=== PATIENT | male | born 1955 | race Two or more races ===

== ENCOUNTER 2018-12-25 18:31 | Emergency (ER) | payer MEDICARE ==
[~2018-12-25] VITALS: Ht 172.7 cm; Wt 77.1 kg
--- NOTE | 2018-12-25 18:45 | PHYS DOC ---
Adult General Chief Complaint Chief Complaint: COUGH HPI HPI Patient is a 63-year-old male who presents with complaint of productive cough for the last few days. Patient states that sputum has been yellow in color. He is not aware of any fever. Patient states that he just wanted to get checked out to make sure that he is not developing pneumonia. He states that he is starting to get sore in his lower ribs bilaterally from all the coughing. Patient is not aware of any aggravating or alleviating factors.[] Review of Systems Review of Systems Constitutional: Denies fever or chills [] Respiratory: Positive cough without shortness of breath [] Cardiovascular: No additional information not addressed in HPI [] GI: Denies abdominal pain, nausea, vomiting or diarrhea [] Integument: Denies rash or skin lesions [] Neurologic: Denies headache, focal weakness or sensory changes [] Current Medications Current Medications Current Medications Medications (Trade) Dose Ordered Sig/Michael Start Time Stop Time Status Last Admin Dose Admin Azithromycin (Zithromax) 500 mg 1X ONCE 12/25/18 19:15 12/25/18 19:16 DC 12/25/18 19:23 500 MG Allergies Allergies Allergies Coded Allergies Type Severity Reaction Last Updated Verified No Known Drug Allergies 12/25/18 No Physical Exam Physical Exam Constitutional: Well developed, well nourished, no acute distress, non-toxic appearance. [] Cardiovascular:Heart rate regular rhythm, no murmur [] Lungs & Thorax: Fine rhonchi noted in the right lung base to auscultation [] Abdomen: Bowel sounds normal, soft. [] Skin: Warm, dry, no erythema, no rash. [] Extremities: No tenderness, no cyanosis, no clubbing, ROM intact, no edema. [] Current Patient Data Vital Signs Vital Signs Date Time Temp Pulse Resp B/P (MAP) Pulse Ox O2 Delivery O2 Flow Rate FiO2 12/25/18 19:07 75 16 139/85 (103) 96 Room Air 12/25/18 18:45 98.4 98.4 EKG EKG [] Radiology/Procedures Radiology/Procedures [] Impressions: Chest x-ray demonstrates no acute process. Course & Med Decision Making Course & Med Decision Making Pertinent Labs and Imaging studies reviewed. (See chart for details) [] Dragon Disclaimer Dragon Disclaimer This electronic medical record was generated, in whole or in part, using a voice recognition dictation system. Departure Departure Impression: Primary Impression: Acute bronchitis Disposition: 01 HOME, SELF-CARE Condition: STABLE Patient Instructions: Acute Bronchitis Scripts Azithromycin (ZITHROMAX) 250 Mg Tablet 1 PKG PO UD, #6 TAB Prov: SIMA MCNEIL Jr. DO 12/25/18 Problem Qualifiers Primary Impression: Acute bronchitis Bronchitis organism: unspecified organism Qualified Codes: J20.9 - Acute bronchitis, unspecified SIMA MCNEIL Jr. DO Dec 25, 2018 18:45
[2018-12-25] MEDS ORDERED: AZIT250T PO (19:04)
[2018-12-25 19:07] VITALS: BP 139/85
[2018-12-25] MEDS ORDERED: AZITHROMYCIN 250 MG TABLET. PO ONE (19:15)
--- NOTE | 2018-12-25 22:19 | RAD ---
PA and lateral chest radiographs 12/25/2018 Clinical history: Cough. PA and lateral digital radiographs of the chest were obtained. Comparison is made to a CT scan of the chest dated 08/08/2003. The cardiac silhouette is normal in size. The thoracic aorta is mildly tortuous. No acute pulmonary infiltrate is seen. No pleural effusion or pneumothorax is noted. Degenerative changes are seen involving the thoracic spine. IMPRESSION: No acute abnormality is seen. Electronically signed by: Montana Cain MD (12/25/2018 10:16 PM) [facility]
== END 2018-12-25 19:24 | disposition home or self-care (01) ==
LOC: ER 18:31
DX: J20.9 Acute bronchitis, unspecified (principal)
CPT/HCPCS: 71046; 99284; Q0144

== ENCOUNTER 2021-04-25 16:56 | Emergency (ER) | payer MEDICARE ==
[~2021-04-25] VITALS: Ht 177.8 cm; Wt 85.0 kg
[~2021-04-25 16:56] MED LIST: AZIT250T PO
--- NOTE | 2021-04-25 18:22 | PHYS DOC ---
Past Medical History Past Medical History: No Pertinent History, Diabetes-Type II, Hypertension Past Surgical History: No Surgical History Smoking Status: Never Smoker Alcohol Use: None Drug Use: None General Adult EDM: Chief Complaint: FLU SYMPTOM HPI: HPI: Mr. Brewer is a 66 year old male presenting with a chief complaint of cough x two weeks. Patient is laying comfortably in bed and states that he coughs up a yellow sputum multiple times throughout the day, over the counter cough suppressants have provided relief, nothing makes his symptoms worse and he den ies any associated symptoms. Review of Systems: Review of Systems: Constitutional: Denies fever or chills Eyes: Denies redness or eye pain HENT: Denies nasal congestion or sore throat Respiratory: reports cough with yellow sputum, denies shortness of breath Cardiovascular: Denies chest pain or palpitations GI: Denies abdominal pain, nausea, or vomiting : Denies dysuria or hematuria Musculoskeletal: Denies back pain or joint pain Integument: Denies rash or skin lesions Neurologic: Denies headache, focal weakness or sensory changes Complete systems were reviewed and found to be within normal limits, except as documented in this note. Heart Score: C/O Chest Pain: N/A Allergies: Allergies: Allergies Coded Allergies Type Severity Reaction Last Updated Verified No Known Drug Allergies 12/25/18 No Physical Exam: PE: Constitutional: Well developed, well nourished, no acute distress, non-toxic appearance HENT: Normocephalic, atraumatic Eyes: conjunctiva normal, no discharge Neck: Normal range of motion, no tenderness Lungs & Thorax: No respiratory distress, equal chest rise and fall, CTAB Cardiac: HRRR no murmur Abdomen: Soft, no tenderness Skin: Warm, dry, no erythema, no rash Back: No tenderness, no CVA tenderness Extremities: No tenderness, ROM intact, no edema Neurologic: Alert and oriented X 3, no focal deficits noted Psychologic: Affect normal, judgment normal Current Patient Data: Vital Signs: Vital Signs Date Time Temp Pulse Resp B/P (MAP) Pulse Ox O2 Delivery O2 Flow Rate FiO2 04/25/21 18:00 98.2 69 16 144/71 (95) 97 Room Air 98.2 EKG: EKG: [] Radiology/Procedures: Radiology/Procedures: PROCEDURE: CHEST AP ONLY AP chest. HISTORY: Cough AP view was taken of the chest. Lungs are clear. Heart is normal in size. There is no effusion. IMPRESSION: 1. No acute chest disease. Electronically signed by: Luis Angel Gregorio MD (04/25/2021 6:48 PM) [facility] Course & Med Decision Making: Course & Med Decision Making Pertinent Labs and Imaging studies reviewed. (See chart for details) Patient presented with a chief complaint of cough with yellow sputum x 2 weeks. potential COVID pneumonia, one dose of dexamethasone administered in ED, discharged with a course of abx and cough suppressant. Patient stable for discharge with outpatient follow-up with PCP. Discussed findings and plan with patient, who acknowledges understanding and agreement. Dragon Disclaimer: [employer] Disclaimer: This electronic medical record was generated, in whole or in part, using a voice recognition dictation system. Departure Departure Impression: Primary Impression: Bronchitis Additional Impression: Suspected 2019 novel coronavirus infection Disposition: HOME / SELF CARE / HOMELESS Condition: STABLE Referrals: UNKNOWN PCP NAME (PCP) Patient Instructions: Acute Bronchitis, [id number] Additional Instructions: You have been tested for or diagnosed with COVID-19. It is an infection caused by a new type of coronavirus. COVID-19 will cause cold-like or mild flu symptoms in most. It can cause more severe symptoms like problems breathing in some. There is no treatment for COVID-19. The body will clear the infection over time. Self-care will help to ease discomfort. Steps to Take: Self-Care Rest as needed. Healthy habits may help you feel better. Steps include: Choose healthy foods including fruits and vegetables. Drink water throughout the day. Get plenty of sleep each night. If you smoke, try to quit. It may ease breathing. Avoid alcohol. Keep Others Healthy The virus can spread to others. Droplets are released every time you sneeze or cough. The droplets can get into the mouth, nose, or eyes of people near you and lead to infection. To lower the chances of spreading COVID-19 to others: Stay at home until your doctor has said it is safe to leave. If you tested positive this will mean staying isolated until both of the following are true: At least 7 days have passed since the start of illness. You are free of fever for at least 72 hours without the use of medicine. During this time: - Avoid public areas, events, or transportation. Do not return to work or school until your doctor has said it is safe to do so. - Call ahead if you need to go to a medical center. Let them know you may have COVID-19. It will help them guide you where to go. They may also ask you to wear a facemask when you come to the office. - If you call for emergency medical services, let them know you may have COVID- 19. While at home: - Try to avoid close contact with others. Stay about 6 feet away. - If possible, spend most of your time in a separate room from others. - Use a face mask if you will be in close contact with others such as sharing a room or vehicle. - Have someone wipe down common surfaces in the home. Use household speech and hearing director every day on areas like doorknobs, counters, or sinks. - Cough or sneeze into a tissue. Throw the tissue away right after use. If a tissue is not available, cough or sneeze into your elbow. - Wash your hands often. Wash them after sneezing or coughing. Use soap and water and wash for at least 20 seconds. Alcohol based hand paper cleaner can be used if soap and water is not available. - Do not prepare food for others. Avoid sharing personal items like forks, spoons, or toothbrushes. - Avoid close contact with pets while you are sick. There is no evidence of the virus passing to pets. This is a safety step until more is known about this virus. Isolation can be frustrating. Social interaction can help. Keep in touch with friends and family through phone and tech options. You can still interact with others in your home, just keep a safe distance of about 6 feet. Follow-up: Your doctors office will check in with you to see if there are any changes in your health. You may be asked to keep track of symptoms to share with them. They will also let you know when you are clear to be in public again. Problems to Look Out For: Contact your doctor if your recovery is not going as you expect. Get emergency care if you have problems such as: - Trouble breathing - Nonstop chest pain or pressure - Changes in awareness, confusion, or problems waking - Lips or face have bluish color - Worsening of symptoms If you think you have an emergency, call for emergency medical services right away. As taken from [facility] Scripts Azithromycin (ZITHROMAX) 250 Mg Tablet 1 PKG PO UD for bronchitis, #6 TAB Take 2 tablets on day 1 and then 1 tablet each day for the next 4 days as directed Prov: NYLA REN DO 04/25/21 Benzonatate (BENZONATATE) 200 Mg Capsule 200 MG PO TID PRN for COUGH, #30 CAP Prov: NYLA REN DO 04/25/21 NYLA REN DO Apr 25, 2021 18:21
[2021-04-25] MEDS ORDERED: DEXAMETHASONE 4 MG TABLET PO ONE (18:30)
--- NOTE | 2021-04-25 18:50 | RAD ---
AP chest. HISTORY: Cough AP view was taken of the chest. Lungs are clear. Heart is normal in size. There is no effusion. IMPRESSION: 1. No acute chest disease. Electronically signed by: Luis Angel Gregorio MD (04/25/2021 6:48 PM) [facility]
[2021-04-25 19:00] VITALS: BP 124/77
[2021-04-25] MEDS ORDERED: AZIT250T PO (19:41)
[2021-04-25] MEDS ORDERED: BENZ200C47 PO (19:41)
== END 2021-04-25 19:50 | disposition home or self-care (01) ==
LOC: ER 16:56
DX: J40 Bronchitis, not specified as acute or chronic (principal); Z20.822 Contact with and (suspected) exposure to COVID-19; E11.9 Type 2 diabetes mellitus without complications; I10 Essential (primary) hypertension
CPT/HCPCS: 71045; 99284; U0003; U0005

== ENCOUNTER 2021-08-18 16:50 | Emergency (ER) | payer MEDICARE ==
[~2021-08-18] VITALS: Ht 172.7 cm; Wt 75.4 kg
[~2021-08-18 16:50] MED LIST changes: +BENZ200C47 PO
[2021-08-18 17:00] VITALS: BP 122/73
[2021-08-18] MEDS ORDERED: CYCL10TA19 PO (17:18)
[2021-08-18] MEDS ORDERED: HYDR-2761 PO ×2 (17:18→17:19)
--- NOTE | 2021-08-18 17:20 | PHYS DOC ---
Past Medical History Past Medical History: Arthritis, Diabetes-Type II, Hypertension Past Surgical History: No Surgical History Smoking Status: Never Smoker Alcohol Use: None Drug Use: None General Adult EDM: Chief Complaint: UPPER EXTREMITY PAIN HPI: HPI: Patient is a 66 year old male with history of diabetes type 2, hypertension, bilateral shoulder arthritis, presenting to the ED today complaining of mild intermittent bilateral shoulder pain worse on the left, symptoms are chronic, patient states he has been taking ibuprofen 800 mg and Tylenol with no relief. Denies any injuries. Denies any chest pain or shortness of breath. States the pain is worse on range of motion. Describes the pain as sharp Review of Systems: Review of Systems: Constitutional: Denies fever or chills. [] Musculoskeletal: Reports bilateral shoulder pain Integument: Denies rash. [] Neurologic: Denies headache, focal weakness or sensory changes. [] Psychiatric: Denies depression or anxiety. [] Heart Score: C/O Chest Pain: N/A Risk Factors: Risk Factors: DM, Current or recent (<one month) smoker, HTN, HLP, family history of CAD, obesity. Risk Scores: Score 0 - 3: 2.5% MACE over next 6 weeks - Discharge Home Score 4 - 6: 20.3% MACE over next 6 weeks - Admit for Clinical Observation Score 7 - 10: 72.7% MACE over next 6 weeks - Early Invasive Strategies Allergies: Allergies: Allergies Coded Allergies Type Severity Reaction Last Updated Verified No Known Drug Allergies 12/25/18 No Physical Exam: PE: Constitutional: Well developed, well nourished, no acute distress, non-toxic appearance. [] Skin: Warm, dry, no erythema, no rash. [] Back: No tenderness, no CVA tenderness. [] Extremities: No tenderness, no cyanosis, no clubbing, ROM intact, no edema. [] Neurologic: Alert and oriented X 3, normal motor function, normal sensory function, no focal deficits noted. [] Psychologic: Affect normal, judgement normal, mood normal. [] EKG: EKG: [] Radiology/Procedures: Radiology/Procedures: [] Course & Med Decision Making: Course & Med Decision Making Pertinent Labs and Imaging studies reviewed. (See chart for details) This a 66-year-old male patient with history of arthritis to bilateral shoulders presenting to the ED today complaining of arthritis pain to bilateral shoulders, no known injury. Currently on Tylenol and ibuprofen with no relief. Given prescription for hydrocodone. Patient states he has an appointment with his PCP on August 27, 2021. Also provided Ortho for follow-up Silverio Disclaimer: Silverio Disclaimer: This electronic medical record was generated, in whole or in part, using a voice recognition dictation system. Departure Departure Impression: Primary Impression: Shoulder pain, bilateral Qualified Codes: M25.511 - Pain in right shoulder; M25.512 - Pain in left shoulder Disposition: HOME / SELF CARE / HOMELESS Condition: STABLE Referrals: UNKNOWN PCP NAME (PCP) RAMOS GHOTRA Jr. DO follow up in one week Patient Instructions: Shoulder Pain, [id number] Additional Instructions: You were evaluated in the emergency room with shoulder pain from arthritis. Take the prescribed medications as needed for pain. Follow-up with your doctor on the . We also provided you an orthopedic doctor. You can see them as needed Scripts Hydrocodone Bit/Acetaminophen (HYDROCODONE-APAP 5-325 ) 1 Tab Tablet 1 TAB PO PRN Q6HRS PRN for PAIN, #20 TAB 0 Refills Prov: TRAM HUMPHREY APRN 08/18/21 Cyclobenzaprine Hcl (CYCLOBENZAPRINE HCL) 10 Mg Tablet 1 TAB PO TID, #30 TAB Prov: TRAM HUMPHREY APRN 08/18/21 TRAM HUMPHREY APRN August 18, 2021 17:20
== END 2021-08-18 17:30 | disposition home or self-care (01) ==
LOC: ER 16:50
DX: M25.511 Pain in right shoulder (principal); M25.512 Pain in left shoulder; G89.29 Other chronic pain; E11.9 Type 2 diabetes mellitus without complications; I10 Essential (primary) hypertension
CPT/HCPCS: 99283